=== PATIENT | female | born 1975 | race African-American/Black ===

== ENCOUNTER 2021-10-01 13:16 | Inpatient (IN) | payer OTHER ==
[2021-10-01 13:35] VITALS: BMI 26.3
[2021-10-01] MEDS ORDERED: P-EPHED 60MG/TRIPROLIDI 2.5MG TABLET PO PRN (13:55)
[2021-10-01] MEDS ORDERED: MAG HYDROX/AL HYDROX/SIMETH 30 ML UNIT-DOSE CUP PO PRN (13:55)
[2021-10-01] MEDS ORDERED: ACETAMINOPHEN 325 MG TABLET (FP) PO PRN (13:55)
[2021-10-01] MEDS ORDERED: MAGNESIUM HYDROX 2400MG/30ML ORAL SUSPENSION 30 ML CUP PO PRN (13:55)
[2021-10-01] MEDS ORDERED: MAGNESIUM CITRATE 300 ML BOTTLE PO PRN (13:55)
[2021-10-01] MEDS ORDERED: guaiFENesin 200 MG/10 ML 10 ML UNIT-DOSE CUPS PO PRN (13:55)
[2021-10-01] MEDS ORDERED: LOPERAMIDE HCL 2 MG CAPSULE PO PRN (13:55)
[2021-10-01] MEDS ORDERED: diazePAM 5 MG TABLET PO PRN (13:59)
[2021-10-01] MEDS: hydrOXYzine PAMOATE 25 MG CAPSULE (FP) PO SCH ×3 (19:46→22:11)
[2021-10-01] MEDS: NICOTINE 14 MG/24 HOURS TOPICAL PATCH TD SCH (19:47)
[2021-10-01] MEDS: THIAMINE HCL 100 MG TABLET (FP) PO SCH (21:27)
[2021-10-01] MEDS: PRENATAL VITAMINS W/ FOLIC ACID TABLET (FP) PO SCH (21:52)
[2021-10-01] MEDS: MELATONIN 5 MG TABLETS PO SCH (22:09)
[2021-10-01] MEDS: FAMOTIDINE 20 MG TABLET PO SCH (22:09)
[2021-10-02] MEDS: NICOTINE 14 MG/24 HOURS TOPICAL PATCH TD SCH (10:28)
[2021-10-02] MEDS: FAMOTIDINE 20 MG TABLET PO SCH ×2 (10:28→21:31)
[2021-10-02] MEDS: PRENATAL VITAMINS W/ FOLIC ACID TABLET (FP) PO SCH (10:28)
[2021-10-02 14:46] LABS: EPI CELLS >36 /uL (0-25.1); HYALINE CASTS 12 /uL (0-3.1); PH,URINE 6.5 (5.0-8.0); URINE APPEARANCE CLOUDY; URINE BACTERIA 216 /uL (0-1359); URINE BILIRUBIN 1+ (NEGATIVE); URINE COLOR DK YELLOW; URINE GLUCOSE (UA) NEGATIVE (NEGATIVE); URINE KETONE TRACE (NEGATIVE); URINE LEUK ESTERASE 2+ (NEGATIVE); URINE NITRITE NEGATIVE (NEGATIVE); URINE PROTEIN TRACE (NEGATIVE); URINE RBC 8 /uL (0-23.9); URINE WBC 174 /uL (0-25.8)
[2021-10-02] MEDS: MELATONIN 5 MG TABLETS PO SCH (21:30)
[2021-10-02] MEDS: THIAMINE HCL 100 MG TABLET (FP) PO SCH (21:31)
[2021-10-03] MEDS: PRENATAL VITAMINS W/ FOLIC ACID TABLET (FP) PO SCH (10:27)
[2021-10-03] MEDS: FAMOTIDINE 20 MG TABLET PO SCH ×2 (10:30→21:44)
[2021-10-03] MEDS: NICOTINE 14 MG/24 HOURS TOPICAL PATCH TD SCH (10:31)
[2021-10-03] MEDS: NICOTINE 10 MG CARTRIDGE (INHALER) IH PRN ×3 (10:38→21:44)
[2021-10-03 10:50] LABS: BLOOD UREA NITROGEN 6.5 mg/dL (7-18); CALCIUM 9.3 mg/dL (8.5-10.1); HEMATOCRIT 46.1 % (32.4-45.2); HEMOGLOBIN 15.7 GM/dL (10.7-15.3); MCH 34.2 pg (25.7-33.7); MCHC 34.1 g/dl (32.0-36.0); MEAN CELL VOLUME 100.5 fl (80-96); MEAN PLT VOLUME 9.8 fl (7.5-11.1); PLATELET COUNT 114 10^3/uL (134-434); RBC 4.59 M/mm3 (3.60-5.2); RDW 14.4 % (11.6-15.6); WHITE BLOOD COUNT 5.6 K/mm3 (4.0-10.0)
[2021-10-03 10:52] LABS: ALBUMIN 3.5 g/dl (3.4-5.0)
[2021-10-03 10:54] LABS: CREATININE 0.7 mg/dL (0.55-1.3)
[2021-10-03 10:55] LABS: BILIRUBIN,TOTAL 1.1 mg/dL (0.2-1)
[2021-10-03] MEDS: THIAMINE HCL 100 MG TABLET (FP) PO SCH (21:44)
[2021-10-03] MEDS: MELATONIN 5 MG TABLETS PO SCH (21:44)
[2021-10-04] MEDS: NICOTINE 14 MG/24 HOURS TOPICAL PATCH TD SCH (10:22)
[2021-10-04] MEDS: FAMOTIDINE 20 MG TABLET PO SCH ×2 (10:22→21:53)
[2021-10-04] MEDS: PRENATAL VITAMINS W/ FOLIC ACID TABLET (FP) PO SCH (10:22)
[2021-10-04] MEDS: NICOTINE 10 MG CARTRIDGE (INHALER) IH PRN ×3 (10:23→22:08)
[2021-10-04] MEDS: THIAMINE HCL 100 MG TABLET (FP) PO SCH (21:52)
[2021-10-04] MEDS: MELATONIN 5 MG TABLETS PO SCH (21:52)
[2021-10-05] MEDS: IBUPROFEN 400 MG TABLET (FP) PO PRN (02:45)
[2021-10-05] MEDS: PRENATAL VITAMINS W/ FOLIC ACID TABLET (FP) PO SCH (10:41)
[2021-10-05] MEDS: NICOTINE 10 MG CARTRIDGE (INHALER) IH PRN ×3 (10:42→19:26)
[2021-10-05] MEDS: FAMOTIDINE 20 MG TABLET PO SCH ×2 (10:42→21:56)
[2021-10-05] MEDS: NICOTINE 14 MG/24 HOURS TOPICAL PATCH TD SCH (10:42)
[2021-10-05] MEDS: THIAMINE HCL 100 MG TABLET (FP) PO SCH (21:56)
[2021-10-05] MEDS: MELATONIN 5 MG TABLETS PO SCH (21:56)
[2021-10-06] MEDS: IBUPROFEN 400 MG TABLET (FP) PO PRN (00:42)
[2021-10-06] MEDS: FAMOTIDINE 20 MG TABLET PO SCH ×2 (11:04→22:00)
[2021-10-06] MEDS: NICOTINE 10 MG CARTRIDGE (INHALER) IH PRN ×3 (11:04→20:20)
[2021-10-06] MEDS: PRENATAL VITAMINS W/ FOLIC ACID TABLET (FP) PO SCH (11:04)
[2021-10-06] MEDS: NICOTINE 14 MG/24 HOURS TOPICAL PATCH TD SCH (11:04)
[2021-10-06] MEDS: THIAMINE HCL 100 MG TABLET (FP) PO SCH (22:00)
[2021-10-06] MEDS: MELATONIN 5 MG TABLETS PO SCH (22:00)
[2021-10-06] MEDS: COLLOIDAL OATMEAL 1 BAR EACH TP PRN (22:01)
[2021-10-07] MEDS: NICOTINE 14 MG/24 HOURS TOPICAL PATCH TD SCH (10:03)
[2021-10-07] MEDS: NICOTINE 10 MG CARTRIDGE (INHALER) IH PRN ×3 (10:03→20:07)
[2021-10-07] MEDS: FAMOTIDINE 20 MG TABLET PO SCH ×2 (10:04→21:14)
[2021-10-07] MEDS: PRENATAL VITAMINS W/ FOLIC ACID TABLET (FP) PO SCH (10:04)
[2021-10-07 13:15] LABS: SYPHILIS W/ RPR CONF NON-REACTIVE (NONREACTIVE)
[2021-10-07] MEDS: THIAMINE HCL 100 MG TABLET (FP) PO SCH (21:14)
[2021-10-07] MEDS: SUVOREXANT 10 MG TABLET PO PRN (23:04)
[2021-10-08] MEDS: NICOTINE 10 MG CARTRIDGE (INHALER) IH PRN ×4 (08:52→21:06)
[2021-10-08] MEDS: NICOTINE 14 MG/24 HOURS TOPICAL PATCH TD SCH (09:58)
[2021-10-08] MEDS: FAMOTIDINE 20 MG TABLET PO SCH ×2 (09:58→21:07)
[2021-10-08] MEDS: PRENATAL VITAMINS W/ FOLIC ACID TABLET (FP) PO SCH (09:58)
[2021-10-08] MEDS: TOLNAFTATE 1% CREAM 15 GM TUBE TP SCH ×2 (14:38→21:57)
[2021-10-08] MEDS: THIAMINE HCL 100 MG TABLET (FP) PO SCH (21:06)
[2021-10-08] MEDS: SUVOREXANT 10 MG TABLET PO PRN (23:13)
[2021-10-09] MEDS: NICOTINE 10 MG CARTRIDGE (INHALER) IH PRN ×4 (08:23→22:47)
[2021-10-09] MEDS: FAMOTIDINE 20 MG TABLET PO SCH ×2 (09:45→21:57)
[2021-10-09] MEDS: TOLNAFTATE 1% CREAM 15 GM TUBE TP SCH ×2 (09:46→21:57)
[2021-10-09] MEDS: PRENATAL VITAMINS W/ FOLIC ACID TABLET (FP) PO SCH (09:46)
[2021-10-09] MEDS: NICOTINE 14 MG/24 HOURS TOPICAL PATCH TD SCH (09:46)
[2021-10-09] MEDS: IBUPROFEN 400 MG TABLET (FP) PO PRN (19:01)
[2021-10-09] MEDS: THIAMINE HCL 100 MG TABLET (FP) PO SCH (21:57)
[2021-10-09] MEDS: SUVOREXANT 10 MG TABLET PO PRN (23:46)
[2021-10-10] MEDS: NICOTINE 10 MG CARTRIDGE (INHALER) IH PRN ×3 (08:04→16:42)
[2021-10-10] MEDS: NICOTINE 14 MG/24 HOURS TOPICAL PATCH TD SCH (10:53)
[2021-10-10] MEDS: FAMOTIDINE 20 MG TABLET PO SCH ×2 (10:53→21:54)
[2021-10-10] MEDS: TOLNAFTATE 1% CREAM 15 GM TUBE TP SCH ×2 (10:53→21:54)
[2021-10-10] MEDS: PRENATAL VITAMINS W/ FOLIC ACID TABLET (FP) PO SCH (10:53)
[2021-10-10] MEDS: IBUPROFEN 400 MG TABLET (FP) PO PRN (20:02)
[2021-10-10] MEDS: THIAMINE HCL 100 MG TABLET (FP) PO SCH (21:54)
[2021-10-10] MEDS: SUVOREXANT 10 MG TABLET PO PRN (23:04)
[2021-10-11] MEDS: NICOTINE 10 MG CARTRIDGE (INHALER) IH PRN ×4 (10:34→22:59)
[2021-10-11] MEDS: NICOTINE 14 MG/24 HOURS TOPICAL PATCH TD SCH (10:34)
[2021-10-11] MEDS: PRENATAL VITAMINS W/ FOLIC ACID TABLET (FP) PO SCH (10:34)
[2021-10-11] MEDS: FAMOTIDINE 20 MG TABLET PO SCH ×2 (10:35→22:58)
[2021-10-11] MEDS: TOLNAFTATE 1% CREAM 15 GM TUBE TP SCH ×2 (10:35→22:58)
[2021-10-11] MEDS: IBUPROFEN 400 MG TABLET (FP) PO PRN (18:19)
[2021-10-11] MEDS: THIAMINE HCL 100 MG TABLET (FP) PO SCH (22:58)
[2021-10-11] MEDS: SUVOREXANT 10 MG TABLET PO PRN (22:58)
[2021-10-12] MEDS: NICOTINE 14 MG/24 HOURS TOPICAL PATCH TD SCH (09:50)
[2021-10-12] MEDS: TOLNAFTATE 1% CREAM 15 GM TUBE TP SCH ×2 (09:50→21:13)
[2021-10-12] MEDS: FAMOTIDINE 20 MG TABLET PO SCH ×2 (09:50→21:13)
[2021-10-12] MEDS: PRENATAL VITAMINS W/ FOLIC ACID TABLET (FP) PO SCH (09:50)
[2021-10-12] MEDS: NICOTINE 10 MG CARTRIDGE (INHALER) IH PRN ×3 (09:51→21:12)
[2021-10-12] MEDS: THIAMINE HCL 100 MG TABLET (FP) PO SCH (21:13)
[2021-10-12] MEDS: SUVOREXANT 10 MG TABLET PO PRN (22:38)
[2021-10-13] MEDS: NICOTINE 14 MG/24 HOURS TOPICAL PATCH TD SCH (10:55)
[2021-10-13] MEDS: NICOTINE 10 MG CARTRIDGE (INHALER) IH PRN ×2 (10:56→13:53)
[2021-10-13] MEDS: FAMOTIDINE 20 MG TABLET PO SCH ×2 (10:56→21:21)
[2021-10-13] MEDS: PRENATAL VITAMINS W/ FOLIC ACID TABLET (FP) PO SCH (10:56)
[2021-10-13] MEDS: TOLNAFTATE 1% CREAM 15 GM TUBE TP SCH (10:56)
[2021-10-13] MEDS: THIAMINE HCL 100 MG TABLET (FP) PO SCH (21:21)
[2021-10-13] MEDS: SUVOREXANT 10 MG TABLET PO PRN (22:39)
[2021-10-13] MEDS: IBUPROFEN 400 MG TABLET (FP) PO PRN (22:57)
[2021-10-14] MEDS: NICOTINE 10 MG CARTRIDGE (INHALER) IH PRN ×4 (08:32→22:43)
[2021-10-14] MEDS: NICOTINE 14 MG/24 HOURS TOPICAL PATCH TD SCH (10:50)
[2021-10-14] MEDS: PRENATAL VITAMINS W/ FOLIC ACID TABLET (FP) PO SCH (10:50)
[2021-10-14] MEDS: FAMOTIDINE 20 MG TABLET PO SCH ×2 (10:50→21:24)
[2021-10-14] MEDS: THIAMINE HCL 100 MG TABLET (FP) PO SCH (21:24)
[2021-10-14] MEDS: IBUPROFEN 400 MG TABLET (FP) PO PRN (21:25)
[2021-10-14] MEDS: COLLOIDAL OATMEAL 1 BAR EACH TP PRN (21:26)
[2021-10-14] MEDS: SUVOREXANT 10 MG TABLET PO PRN (22:46)
[2021-10-15] MEDS: NICOTINE 10 MG CARTRIDGE (INHALER) IH PRN ×4 (08:30→21:13)
[2021-10-15] MEDS: PRENATAL VITAMINS W/ FOLIC ACID TABLET (FP) PO SCH (10:59)
[2021-10-15] MEDS: NICOTINE 14 MG/24 HOURS TOPICAL PATCH TD SCH (10:59)
[2021-10-15] MEDS: FAMOTIDINE 20 MG TABLET PO SCH ×2 (10:59→21:12)
[2021-10-15] MEDS: IBUPROFEN 400 MG TABLET (FP) PO PRN (21:12)
[2021-10-15] MEDS: THIAMINE HCL 100 MG TABLET (FP) PO SCH (21:12)
[2021-10-15] MEDS: SUVOREXANT 10 MG TABLET PO PRN (22:22)
[2021-10-16] MEDS: NICOTINE 10 MG CARTRIDGE (INHALER) IH PRN ×4 (08:44→21:16)
[2021-10-16] MEDS: NICOTINE 14 MG/24 HOURS TOPICAL PATCH TD SCH (10:58)
[2021-10-16] MEDS: FAMOTIDINE 20 MG TABLET PO SCH ×2 (10:58→21:14)
[2021-10-16] MEDS: PRENATAL VITAMINS W/ FOLIC ACID TABLET (FP) PO SCH (10:58)
[2021-10-16] MEDS: THIAMINE HCL 100 MG TABLET (FP) PO SCH (21:14)
[2021-10-16] MEDS: IBUPROFEN 400 MG TABLET (FP) PO PRN (21:15)
[2021-10-16] MEDS: SUVOREXANT 10 MG TABLET PO PRN (23:18)
[2021-10-17] MEDS: NICOTINE 10 MG CARTRIDGE (INHALER) IH PRN ×3 (05:58→22:38)
[2021-10-17] MEDS: NICOTINE 14 MG/24 HOURS TOPICAL PATCH TD SCH (11:19)
[2021-10-17] MEDS: FAMOTIDINE 20 MG TABLET PO SCH ×2 (11:19→22:36)
[2021-10-17] MEDS: PRENATAL VITAMINS W/ FOLIC ACID TABLET (FP) PO SCH (11:19)
[2021-10-17] MEDS: IBUPROFEN 400 MG TABLET (FP) PO PRN (22:36)
[2021-10-17] MEDS: THIAMINE HCL 100 MG TABLET (FP) PO SCH (22:36)
[2021-10-17] MEDS: SUVOREXANT 10 MG TABLET PO PRN (22:37)
[2021-10-18] MEDS: NICOTINE 10 MG CARTRIDGE (INHALER) IH PRN ×4 (08:07→22:06)
[2021-10-18] MEDS: PRENATAL VITAMINS W/ FOLIC ACID TABLET (FP) PO SCH (11:10)
[2021-10-18] MEDS: NICOTINE 14 MG/24 HOURS TOPICAL PATCH TD SCH (11:11)
[2021-10-18] MEDS: FAMOTIDINE 20 MG TABLET PO SCH ×2 (11:12→22:04)
[2021-10-18] MEDS: THIAMINE HCL 100 MG TABLET (FP) PO SCH (22:04)
[2021-10-18] MEDS: SUVOREXANT 10 MG TABLET PO PRN (22:05)
[2021-10-18] MEDS: IBUPROFEN 400 MG TABLET (FP) PO PRN (22:05)
[2021-10-19] MEDS: NICOTINE 10 MG CARTRIDGE (INHALER) IH PRN ×4 (07:56→21:56)
[2021-10-19] MEDS: NICOTINE 14 MG/24 HOURS TOPICAL PATCH TD SCH (10:07)
[2021-10-19] MEDS: FAMOTIDINE 20 MG TABLET PO SCH ×2 (10:08→21:58)
[2021-10-19] MEDS: PRENATAL VITAMINS W/ FOLIC ACID TABLET (FP) PO SCH (10:08)
[2021-10-19] MEDS: SUVOREXANT 10 MG TABLET PO PRN (21:57)
[2021-10-19] MEDS: IBUPROFEN 400 MG TABLET (FP) PO PRN (21:57)
[2021-10-19] MEDS: THIAMINE HCL 100 MG TABLET (FP) PO SCH (21:58)
[2021-10-19] MEDS: ARTIFICIAL TEARS (POLYVINYL ALCOHOL) OPTH DROPS OU PRN (22:00)
[2021-10-20] MEDS: NICOTINE 10 MG CARTRIDGE (INHALER) IH PRN ×4 (07:58→22:03)
[2021-10-20] MEDS: NICOTINE 14 MG/24 HOURS TOPICAL PATCH TD SCH (10:13)
[2021-10-20] MEDS: PRENATAL VITAMINS W/ FOLIC ACID TABLET (FP) PO SCH (10:13)
[2021-10-20] MEDS: FAMOTIDINE 20 MG TABLET PO SCH ×2 (10:14→22:04)
[2021-10-20] MEDS: ARTIFICIAL TEARS (POLYVINYL ALCOHOL) OPTH DROPS OU PRN ×3 (10:14→22:06)
[2021-10-20] MEDS: THIAMINE HCL 100 MG TABLET (FP) PO SCH (22:04)
[2021-10-20] MEDS: IBUPROFEN 400 MG TABLET (FP) PO PRN (22:04)
[2021-10-20] MEDS: SUVOREXANT 10 MG TABLET PO PRN (22:05)
[2021-10-21] MEDS: NICOTINE 10 MG CARTRIDGE (INHALER) IH PRN ×4 (08:12→21:16)
[2021-10-21] MEDS: NICOTINE 14 MG/24 HOURS TOPICAL PATCH TD SCH (10:15)
[2021-10-21] MEDS: FAMOTIDINE 20 MG TABLET PO SCH ×2 (10:17→21:17)
[2021-10-21] MEDS: ARTIFICIAL TEARS (POLYVINYL ALCOHOL) OPTH DROPS OU PRN ×3 (10:17→21:16)
[2021-10-21] MEDS: COLLOIDAL OATMEAL 1 BAR EACH TP PRN (10:17)
[2021-10-21] MEDS: PRENATAL VITAMINS W/ FOLIC ACID TABLET (FP) PO SCH (10:18)
[2021-10-21] MEDS: THIAMINE HCL 100 MG TABLET (FP) PO SCH (21:17)
[2021-10-21] MEDS: IBUPROFEN 400 MG TABLET (FP) PO PRN (21:18)
[2021-10-21] MEDS: SUVOREXANT 10 MG TABLET PO PRN (22:29)
[2021-10-22] MEDS: NICOTINE 10 MG CARTRIDGE (INHALER) IH PRN ×4 (00:53→21:14)
[2021-10-22] MEDS: PRENATAL VITAMINS W/ FOLIC ACID TABLET (FP) PO SCH (10:43)
[2021-10-22] MEDS: FAMOTIDINE 20 MG TABLET PO SCH ×2 (10:44→21:14)
[2021-10-22] MEDS: ARTIFICIAL TEARS (POLYVINYL ALCOHOL) OPTH DROPS OU PRN ×2 (10:44→21:14)
[2021-10-22] MEDS: NICOTINE 14 MG/24 HOURS TOPICAL PATCH TD SCH (10:44)
[2021-10-22] MEDS: THIAMINE HCL 100 MG TABLET (FP) PO SCH (21:14)
[2021-10-22] MEDS ORDERED: SUVOREXANT 10 MG TABLET PO PRN (22:00)
[2021-10-22] MEDS: IBUPROFEN 400 MG TABLET (FP) PO PRN (23:10)
[2021-10-23 07:09] VITALS: BP 131/87; PULSE 93; TEMP 98
[2021-10-23] MEDS: NICOTINE 10 MG CARTRIDGE (INHALER) IH PRN ×2 (07:17→10:19)
[2021-10-23] MEDS: NICOTINE 14 MG/24 HOURS TOPICAL PATCH TD SCH (10:19)
[2021-10-23] MEDS: FAMOTIDINE 20 MG TABLET PO SCH (10:19)
[2021-10-23] MEDS: PRENATAL VITAMINS W/ FOLIC ACID TABLET (FP) PO SCH (10:19)
== END 2021-10-23 10:25 | disposition home or self-care (01) | DRG 772 ==
LOC: YASAS 13:16 → Y5N 17:15
PROVIDERS: ADMIT Allergy & Immunology; ATTEND Psychiatry & Neurology Pain Medicine
PROC: HZ42ZZZ Group Counseling for Substance Abuse Treatment, Cognitive-Behavioral (ICD-10-PCS; principal; 2021-10-01)
DX: F10.20 Alcohol dependence, uncomplicated (principal); F12.20 Cannabis dependence, uncomplicated; F17.210 Nicotine dependence, cigarettes, uncomplicated; F19.24 Other psychoactive substance dependence with psychoactive substance-induced mood disorder; F41.9 Anxiety disorder, unspecified; F32.A Depression, unspecified; R82.90 Unspecified abnormal findings in urine
CPT/HCPCS: 36415; 80053; 81003; 81025; 85027; 86780; 86803; 87086; 93005; 93010; C9803-CS; U0003; U0005